=== PATIENT | female | born 1995 | race Caucasian/White ===

== ENCOUNTER → 2016-10-22 09:57 | Outpatient (CLI) | payer MEDICAID ==
[~2016-10-22 09:57] MED LIST: IBUPROFEN600 MG PO; PERCOCET 5-3251 TAB PO; PRENATAL COMPLE1 TAB PO; ZOLOFT50 MG PO
[2016-10-22 15:13] LABS: T4 THYROXIN - FREE 0.94 ng/dL (0.76-1.46); THYROID STIMULATING HORMONE 1.23 uIU/mL (0.36-3.74)
--- NOTE | 2016-10-24 11:11 | CN ---
PATIENT NAME:ELIF BELLO MEDICAL RECORD: [id number] : 93 LOCATION:[facility] ADMIT DATE: ACCOUNT: [id number] CONSULTING PHYSICIAN: MORE SHIPMAN MD REFERRING PHYSICIAN: NAM PALACIOS MD DATE OF CONSULTATION: 10/22/2016 Cardiology Consultation DIAGNOSES: 1. Recurrent syncope. 2. Tachycardia. 3. , week 30. HISTORY OF PRESENT ILLNESS: Mrs. Bello presents with episodes of syncope. This is not new however. She is 30 weeks . She had syncope prior to the . Workup for syncope has been negative in the past. She has a tachycardia, but it is resting tachycardia, approximately 110 beats per minute. No dysrhythmias. She does not feel any palpitations or worsening palpitations with the episodes of syncope. PHYSICAL EXAMINATION: GENERAL APPEARANCE: Well-nourished, well-developed, appears stated age. Level of distress, comfortable. PSYCHIATRIC: Mental status, alert, normal affect. Orientation, oriented to time, place and person. EYES: Lids and conjunctiva, noninjected. No discharge, no pallor. ENT: Lips, teeth, gums, normal dentition. Oropharynx, no cyanosis, no pallor. NECK: Carotid arteries, bilateral normal upstroke, no bruits, no thrills. JUGULAR VEINS: No jugular venous pressure or distention. CERVICAL LYMPH NODES: Nontender, nonenlarged. THYROID: Not enlarged. Nontender. No nodules. LUNGS: Respiratory effort, unlabored. CHEST: Normal curvature. No thoracic deformity. No chest wall tenderness. Percussion, resonant. Auscultation, clear. No wheezes, no rales, no rhonchi. CARDIOVASCULAR: Precordial exam, nondisplaced. No heaves or pericardial thrills. Rate and rhythm, regular. Heart sounds, normal S1, normal S2. No S3, no gallop, no rub. Systolic murmur, not heard. Diastolic murmur, not heard. EXTREMITIES: No cyanosis, no edema. Peripheral pulses, full and equal in all extremities, except as noted. No bruits appreciated. ABDOMEN: Soft, nondistended. Normal aorta. No bruit. Nontender. No masses. Liver, nontender, no hepatomegaly. Spleen, nontender, no splenomegaly. MUSCULOSKELETAL: No joint tenderness. No joint swelling. No erythema. NEUROLOGICAL: Normal gait, normal strength, normal tone. SKIN: Warm and dry. REVIEW OF SYSTEMS: The patient reports easy bruising but reports no swollen glands. The patient reports no fever, no night sweats, no significant weight gain, no significant weight loss. No significant exercise tolerance. The patient reports no dry eyes, no irritation, no vision change. Patient reports no difficulty hearing and no ear pain. Patient reports no frequent nose bleeds or nose and sinus problems. Patient reports on arm pain on exertion. No shortness of breath while lying down. No history of heart murmur. Patient reports no cough, no wheezing or coughing up blood. Patient reports no abdominal pain, no vomiting. Normal appetite. No diarrhea and not vomiting CONSULT REPORT [id number] ELIF BELLO. No nausea and no constipation. Patient reports no incontinence. No difficulty urinating. No hematuria. No increased frequency. Patient reports no muscle aches. No weakness, no arthralgias, no back pain. No swelling of the extremities. Patient reports no abnormal mole, no jaundice, no rashes. Reports no loss of consciousness. No weakness and no numbness. No seizures, dizziness, or headaches. The patient reports no depression, no sleep disturbance, feeling safe in a relationship and no alcohol abuse. Patient reports on fatigue. Reports no runny nose or sinus pressure. No itching, no hives, and no frequent sneezing. OVERALL IMPRESSION: At this time, we will get an echocardiogram to rule out peripartum cardiomyopathy. Otherwise, no cardiac workup is necessary. TRANSINT:[id number] Voice Confirmation ID: [id number] DOCUMENT ID: [id number] MORE SHIPMAN MD at 1111 CC: [id number] DICTATION DATE: 10/23/16 1520 OBSTETRICS NURSE: 10/23/16 1546 [facility] CLI 10/22/16 [place] [id number]
--- NOTE | 2016-10-24 11:11 | EC ---
PATIENT:ELIF BELLO DATE OF SERVICE: 10/22/16 SEX: F MEDICAL RECORD: [id number] DATE OF : [birth year] LOCATION:[facility] AGE OF PATIENT: 21 ADMISSION DATE: 10/22/16 REFERRING PHYSICIAN: INTERPRETING PHYSICIAN: MORE MCGUIRE MD ECHOCARDIOGRAM REPORT ECHO CHARGES 4 ECHO COMPLETE CLINICAL DIAGNOSIS: CP ECHOCARDIOGRAPHIC MEASUREMENTS (adult normal given) AC root (d.<3.7cm) 2.9 LV Septum d (<1.2 cm> 1.1 Valve Excursion 2.2 LV Septum (systole) 1.7 Left Atria (s.<4.0cm> 2.9 LVPW d(<1.2cm) 1.0 RV (d.<2.3cm) 3.1 LVPW (sytole) 1.6 LV diastole(<5.6CM) 4.6 MV E-F(>70mm/sec) LV systole 2.4 LVOT Diameter 2.0 MV exc.(>10mm) Est.ejection fraction (50-75%) Pericardial Effusion N DOPPLER: LVIT A 51.0 E 65.0 LA RVSP 34.2 LVOT 94.0 AOP1/2T Asc. Ao 143 RVOT 71.0 RA PA 93.0 AV Gradient Peak 8.2 AV Mean 4.1 AV Area 1.9 MV Gradient Peak 2.5 MV Mean 1.0 MV Area COMMENTS: Grinder Machine Setter: Elva MARMOLEJO Commercial Food Instructor:1 Dr. Mcguire TAPE# PACS DATE OF SERVICE: 10/22/2016 Echocardiogram FINDINGS: 1. Left ventricle chamber size is within normal limits. Left ventricular systolic function is normal. Overall ejection fraction estimated at 55%. 2. Left atrium, right atrium, and right ventricular chamber sizes are within normal limits. 3. Valvular structures have normal structure and motion. ECHOCARDIOGRAM REPORT [id number] ELIF BELLO 4. Doppler interrogation reveals no significant valvular insufficiency or stenosis. 5. No evidence of pericardial effusion or left ventricular thrombus. TRANSINT:[id number] Voice Confirmation ID: [id number] DOCUMENT ID: [id number] MORE MCGUIRE MD at 1111 CC: [id number] DICTATION DATE: 10/23/16 1520 TYPE PROOF REPRODUCER: 10/23/16 1534 [facility] CLI 10/22/16 [place] [id number] [facility] [address]
[2016-11-14 11:09] VITALS: BMI 28.6
== END | disposition home or self-care (01) ==
LOC: D.LDO 09:57
PROVIDERS: Specialist
DX: O26.893 Other specified pregnancy related conditions, third trimester (principal); Z3A.35 35 weeks gestation of pregnancy; R06.02 Shortness of breath; R55 Syncope and collapse; R42 Dizziness and giddiness

== ENCOUNTER 2016-11-14 04:41 | Inpatient (IN) | payer MEDICAID ==
[2016-11-14] VITALS (9 sets, daily range): BP systolic 104–132; BP diastolic 53–76; Ht 162.6 cm; Wt 75.8 kg
[~2016-11-14] VITALS: Ht 162.6 cm; Wt 75.8 kg
[~2016-11-14 04:41] MED LIST changes: -IBUPROFEN600 MG PO; -PERCOCET 5-3251 TAB PO; -ZOLOFT50 MG PO
[2016-11-14] MEDS ORDERED: PRENATAL COMPLE1 TAB PO (05:28)
[2016-11-14 06:32] LABS: HEMATOCRIT 37.5 % (36.0-48.0); HEMOGLOBIN 12.9 g/dL (12-16); MCH 31.6 pg (26.0-34.0); MCHC 34.4 g/dL (31.0-37.0); MCV 91.9 fL (80.0-100.0); MEAN PLATELET VOLUME 10.4 fL (7.4-10.4); RBC 4.08 10x6/uL (4.00-5.40); RDW 13.6 % (11.5-14.5); WBC 8.4 10x3/uL (4.8-10.8)
[2016-11-14 09:38] LABS: APPEARANCE CLEAR (CLEAR); BILIRUBIN NEGATIVE (NEGATIVE); COLOR YELLOW (YELLOW); GLUCOSE NEGATIVE (NEGATIVE); KETONE NEGATIVE (NEGATIVE); LEUKOCYTE ESTERASE NEGATIVE (NEGATIVE); NITRITE NEGATIVE (NEGATIVE); PROTEIN NEGATIVE (NEGATIVE); UROBILINOGEN NORMAL (NORMAL)
--- NOTE | 2016-11-14 19:19 | NUR ---
1909 VIABLE BABY BOY DELIVERED, CORD BLOOD AND GASES DONE AND SENT OUT, LEE.
--- NOTE | 2016-11-14 20:15 | NUR ---
RECEIVED TO 1273 VIA CART FROM RECOVERY. AWAKE AND ORIENTED. ABD. DRESSING DRY AND INTACT. ICE CAP APPLIED TO DRESSING AREA. IV OF LR WITH 20U PITOCIN ADDED TO PUMP AT 125CC/HR. SCDS ON AND PUMP FUNCTIONAL. LIMITED MOVEMENT OF LOWER EXTREMITIES. DENIES ANY PAIN AT THIS TIME. LOCHIA RUBRA MOD. LENNON PATENT AND DRAINING. EPIDURAL CONTINUES TO INFUSE WITH 67.5CC REMAINING.
--- NOTE | 2016-11-14 20:30 | NUR ---
AWAKE AT INTERVALS. BREATH SOUNDS CLEAR. BOWEL SOUNDS HYPOACTIVE. DENIES PAIN. FAMILY AT BEDSIDE. 60CC IN URINE METER.
--- NOTE | 2016-11-14 20:36 | NUR ---
IV OF LR WITH PITOCIN DOWN AND IV OF 1000CC NS WITH 20U PITOCIN ADDED HUNG AT PRESENT RATE OF 125CC/HR TO EXISTING TUBING.
--- NOTE | 2016-11-14 20:41 | NUR ---
BABY TO ROOM. PT. ASKING ABOUT HER OPTIONS TO EAT. INFORMED OF ITEMS AVAILABLE FOR HER TO EAT. SELECTION MADE.
--- NOTE | 2016-11-14 20:46 | NUR ---
[place] DRINK AND JELLO PROVIDED TO PT. CONTINUES AWAKE AND ORIENTED.
--- NOTE | 2016-11-14 21:12 | NUR ---
EPIDURAL INFUSING WITH 65.4CC REMAINING. ABD. DRESSING DRY AND INTACT. LOCHIA RUBRA SCANT. PT. AWAKENED WITH ASSESSMENT. DENIES ANY PAIN. FAMILY REMAIN AT BEDSIDE. APPROX. 100CC IN URINE METER WHICH IS CLEAR.
--- NOTE | 2016-11-14 21:31 | NUR ---
PT. REPORTS THAT SHE BOLUSED EPIDURAL DUE TO LOWER ABD. DISCOMFORT. INFORMED COULD ADMININISTER TORADOL. PT. AND PT'S MOTHER BOTH AGREE TO MED.
--- NOTE | 2016-11-14 21:37 | NUR ---
PT. AWAKE AND ORIENTED. WHEN ASKED ABOUT HER PAIN SCORE, PT. REPORTS THAT SHE DOES NOT HAVE ANY PAIN AND THE PAIN IS ONLY WHEN SHE COUGHS. INFORMED PT. THAT DISCOMFORT WITH COUGHING WOULD OCCUR. PT. STATES UNDERSTANDING. INQUIRED ABOUT OTHER NOURISHMENT THAT SHE WOULD LIKE. POPSICLE SERVED PER PT. REQUEST. VISITORS IN ROOM.
--- NOTE | 2016-11-14 22:05 | NUR ---
POSITION CHANGE FROM BACK TO RT SIDE WITH ASSISTANCE. POSITIONED WITH PILLOWS. EXPLAINED TO PT. HOW TO USE INCENTIVE SPIROMETER AND PT. STATES SHE HAS SEEN IT USED BEFORE. PT. STATES UNDERSTANDING TO INSTRUCTIONS AND GIVEN RETURN DEMONSTRATION X 2 ACHIEVING 2000 ON METER. INSTRUCTED PT. ON HOW TO SPLINT ABD. WHEN MAKING POSITION CHANGES AND COUGHING. PT. STATES VERBAL UNDERSTANDING. 500CC EMPTIED FROM LENNON METER AND DRAINAGE BAG. SCDS ON AND FUNCTIONAL. ABD. DRESSING DRY AND INTACT. LOCHIA RUBRA SCANT TO MOD. AFTER POSITION CHANGE PT. REPORTS THAT SHE IS COMFORTABLE AGAIN. EPIDURAL PUMP WITH 60.4 REMAINING.
--- NOTE | 2016-11-14 22:12 | NUR ---
CRANBERRY JUICE GIVEN TO PT. PT'S DAD TALKING TO PT. ABOUT STARTING ANTIBIOTICS ON . EXPLAINING REASONS. FAMILY AT BEDSIDE.
--- NOTE | 2016-11-14 23:00 | NUR ---
EPIDURAL PUMP READING 58.7CC REMAINING. PT. C/O BEING HOT. BLANKETS REMOVED FROM PT. , SOCKS REMOVED AND FEET UNCOVERED AND COOL CLOTH TO HEAD. TEMP. 98.4 AX. ICE CAP REFILLED AND PLACED ON ABD. DRESSING WHICH IS DRY AND INTACT. LOCHIA RUBRA SCANT TO MOD. SCDS ON AND FUNCTIONAL. LENNON PATENT AND DRAINING.
[2016-11-15] VITALS (7 sets, daily range): BP systolic 97–124; BP diastolic 54–68
--- NOTE | 2016-11-15 00:01 | NUR ---
PT. AWAKE AND ORIENTED. SKIN WARM AND DRY. PT. REPORTS THAT SHE HAS COOLED. LENNON EMPTIED OF 500 CC.ABD. DRESSING DRY AND INTACT. ICE CAP TO DRESSING AREA. JANETTE PADS CHANGED. LOCHIA RUBRA MOD ON PADS. PT. COUGHING DRY NONPRODUCTIVELY INTERMITTENTLY. REPORTS THAT IS ONLY TIME SHE HAS DISCOMFORT AND PT. BOLUSES EPIDURAL PUMP. 54CC REMAINING IN EPIDURAL PUMP. POSITIONED FROM RT TO LT. SIDE . PT. ABLE TO BEND LEGS AT KNEES AND PUSH AND LIFT BUTTOCKS SLIGHTLY. LESS ASSISTANCE NEEDED WITH THIS POSITION CHANGE WITH PT. ABLE TO ASSIST MORE. INCENTIVE SPIROMETER USED PER PT. ICE CHIPS PROVIDED. PT'S MOTHER LYING ON SOFA.
--- NOTE | 2016-11-15 01:25 | NUR ---
PT. AROUSES WHEN IN PT. ROOM BRIEFLY AND GOES IMMEDIATELY BACK TO SLEEP. PT'S MOTHER SLEEPING ON SOFA. LENNON PATENT AND DRAINING. CLINDAMYCIN 900MG HUNG TO INFUSE IN 30 MINUTES DIRECTED PER INFUSION PUMP PROGRAM AND VERIFIED BY DESKTOP SUPPORT MANAGER, SANTY. SCDS ON AND FUNCTIONAL.
--- NOTE | 2016-11-15 02:00 | NUR ---
PT. AWAKE WHEN DOOR OPENED. POSITIONED FROM LT SIDE TO BACK. JANETTE PADS CHANGED AND UNDER PAD CHANGED. PT. OF MINIMAL ASSISTANCE WITH LIFTING BUTTOCKS. EATING ON ICE BUT DENIES ANY NEEDS. LENNON PATENT AND DRAINING. SCDS ON AND FUNCTIONAL. EPIDURAL PUMP CONTINUES TO INFUSE WITH 47.4CC REMAINING. STATES SHE HAS GOTTEN COOL AND REQUESTED BLANKET AGAIN. SAME GIVEN.
--- NOTE | 2016-11-15 04:05 | NUR ---
LENNON EMPTIED OF 400CC. PT. AWAKENS BRIEFLY TO MOVEMENT IN ROOM AND THEN GOES BACK TO SLEEP. VITAL SIGNS OBTAINED. POSITION CHANGED FROM BACK TO RT SIDE. PT. ABLE TO PROVIDE MORE ASSISTANCE WITH TURNING SELF. JANETTE PADS CHANGED WITH SCANT TO MOD. LOCHIA RUBRA. ABD. DRESSING DRY AND INTACT. ICE CAP REFILLED AND PLACED OVER ABD. BANDAGE. SCDS ON AND FUNCTIONAL. EPIDURAL PUMP CONTINUES TO INFUSE WITH 40CC REMAINING. PT'S MOTHER SLEEPING ON SOFA.
--- NOTE | 2016-11-15 05:05 | NUR ---
LAB HERE FOR BLOOD DRAW.
[2016-11-15 05:15] LABS: RAPID PLASMA REAGIN Non Reactive (Non Reactive)
--- NOTE | 2016-11-15 05:15 | NUR ---
ROOM TEMP. WARMER. PT. C/O FEELING HOT. ALSO C/O ITCHING. INFORMED THAT EPIDURAL WOULD BE TURNED OFF AROUND 7AM SO COULD TURN OFF NOW IF SHE DESIRES. PT. DECLINED STATING THAT SHE WOULD CONTINUE WITH EPIDURAL. LENNON PATENT AND DRAINING. MOTHER AT BEDSIDE WIPING PT'S FACE WITH COOL WASH CLOTH. [employer] DRINK PROVIDED. PT. WITH BLANKET COVERING HER AND OFFERED TO REMOVE BLANKET AND PT. DECLINED.
[2016-11-15 05:22] LABS: BASOPHILS 0.1 % (0.0-2.0); EOSINOPHILS 0.1 % (0-7); HEMATOCRIT 32.6 % (36.0-48.0); HEMOGLOBIN 11.2 g/dL (12-16); IMMATURE GRANULOCYTES 0.2 % (0-5); LYMPHOCYTES 5.5 % (15-50); MCH 31.5 pg (26.0-34.0); MCHC 34.4 g/dL (31.0-37.0); MCV 91.6 fL (80.0-100.0); MEAN PLATELET VOLUME 9.4 fL (7.4-10.4); MONOCYTES 8.8 % (2-11); NEUTROPHILS 85.3 % (40-80); PLATELET COUNT 164 10x3/uL (130-400); RBC 3.56 10x6/uL (4.00-5.40); RDW 13.6 % (11.5-14.5)
[2016-11-15 05:23] LABS: WBC 12.4 10x3/uL (4.8-10.8)
--- NOTE | 2016-11-15 06:15 | NUR ---
LYING ON RT SIDE WITH EYES CLOSED AND RESPIRATIONS REGULAR. PT. DOES NOT AROUSE TO THIS NURSE IN ROOM. EPIDURAL CONTINUES TO INFUSE. SCDS ON AND FUNCTIONAL. LENNON PATENT AND DRAINING WITH 350CC IN DRAINAGE METER. WILL NOT AWAKE PT. DURING THIS ROUND DUE TO LIMITED SLEEP THAT PT. HAS HAD TONIGHT. PT'S MOTHER SLEEPING ON SOFA.
--- NOTE | 2016-11-15 07:15 | NUR ---
THIS RN TO ROOM WITH PAULA CHAIREZ FOR BEDSIDE REPORT. PT DENIES PAIN OR ANY NEEDS AT THIS TIME. WILL RETURN FOR FULL ASSESSMENT.
--- NOTE | 2016-11-15 07:37 | NUR ---
THIS RN TO ROOM FOR SHIFT ASSESSMENT. VS TAKEN, SEE FLOWSHEET FOR DOC. IV INFUSING PITOCIN TO RIGHT WRIST, EPIDURAL LINE IN PLACE AND INFUSING AT 2.5ML/H WITH 19.8VTBI. FUNDUS FIRM, ML, U/2. OCCLUSIVE ABD DSG C/D/I OVER LT INCISION. SMALL LOCHIA WITHOUT CLOTS NOTED TO PERIPAD, PERINEUM CLEANED AND PERIPAD CHANGED. LENNON CATH REMOVED AND IV SALINE LOCKED PER ORDERS. EPIDURAL PUMP TURNED OFF, LINE LEFT IN PLACE AT THIS TIME UNTIL PT HAS BETTER MOBILITY TO SIT UP FOR REMOVAL. SCD'S ON BILAT TO LE. PT DENIES PAIN BUT STATES SHE "DOESN'T FEEL GOOD." POC DISCUSSED WITH PT, WILL ADMIN IV TORADOL ORDERED FOR BREAKTHROUGH PAIN ANTICIPATION EPIDURAL WEARS OFF. PT REPORTS SOME NAUSEA AND VOMITING SMALL AMT CLEAR LIQUIS WITH CL BREAKFAST. PT DENIES NEED FOR NAUSEA MEDICATION. COOL CLOTH GIVEN FOR FACE. NEW ICE PACK APPLIED TO INCISION. PT DENIES FURTHER NEEDS. PT INSTRUCTED TO CALL WHEN SHE FEELS THE URGE TO VOID. SRUx2, CL IN REACH. PT'S MOTHER AT BEDSIDE. MIC RN TO ROOM WITH INFANT.
--- NOTE | 2016-11-15 09:08 | NUR ---
PT C/O SWEATING. PT'S VITALS RETAKEN, TEMP NOTED TO BE DECREASED TO 99.0 ORALLY. GOWN AND PARTIAL LINEN CHANGE DONE. FUNDUS FIRM, ML, U/2. SMALL RUBRA LOCHIA WITHOUT CLOTS TO PERIPAD. COOL CLOTH GIVEN. PT DENIES FURTHER NEEDS.
--- NOTE | 2016-11-15 09:20 | NUR ---
DR PALACIOS PHONED AND NOTIFIED OF PT'S VITALS, AM LABS, C/O, AND REVIEWED THAT ABX NEED TO BE CONTINUED PREVIOUSLY ORDERED. ORDER RECEIVED FOR RAPID FLU AND STREP SWABS. WILL PROCEED ORDERED.
--- NOTE | 2016-11-15 09:40 | NUR ---
DR PALACIOS PHONED AND NOTIFIED OF HOSPITALS POLICIES REGARDING FLU SWABS AND ISOLATION POTENTIALLY CAUSING ISSUES WITH AND . ORDER RECEIVED TO CANCEL FLU SWAB AT THIS TIME AND WILL RE-EVALUATE NEEDED, BUT PROCEED WITH ABX AND RAPID STREP SWAB. WILL UPDATE PT ON POC.
--- NOTE | 2016-11-15 09:58 | NUR ---
PT . FIRST IV ABX HUNG AND PERCOCET 10 ADMIN FOR PAIN 04/20, SEE EMAR FOR DOC.
--- NOTE | 2016-11-15 11:15 | NUR ---
PT C/O URGE TO VOID. PT SITS ON BEDSIDE, EPIDURAL CATH REMOVED WITHOUT INCIDENT, BLACK TIP INTACT. BANDAID APPLIED. PT AMBULATES TO BR WITH MINIMAL ASSIST, C/O FEELING "A LITTLE LIGHTHEADED" BUT STATES SHE FEELS STABLE AND CAN WALK. PT VOIDS APPROX 600ML CLEAR YELLOW URINE IN URINE HAT. PANTIES AND CLEAN PADS APPLIED. BED PADS CHANGED. PT AMBULATES BACK TO BED AND POSITIONS SELF UP IN BED. NEW ICE PACK APPLIE. PT DENIES NEEDS. WILL CONT TO MONITOR.
--- NOTE | 2016-11-15 12:16 | NUR ---
DR PALACIOS TO ROOM ASSESSING PT AND DISCUSSING POC. PT VERBALIZES UNDERSTANDING AND DENIES QUESTIONS. IV ABX HUNG PER ORDER WITH SALINE FLUSH BETWEEN ABX. DIET ADVANCED TO REGULAR DIET ORDERED BY DR PALACIOS. PT DENIES NEEDS. SRUx2, CL IN REACH.
[2016-11-15 12:40] LABS: BASOPHILS 0.1 % (0.0-2.0); EOSINOPHILS 0.1 % (0-7); HEMATOCRIT 31.6 % (36.0-48.0); HEMOGLOBIN 10.9 g/dL (12-16); IMMATURE GRANULOCYTES 0.3 % (0-5); LYMPHOCYTES 6.1 % (15-50); MCH 31.6 pg (26.0-34.0); MCHC 34.5 g/dL (31.0-37.0); MCV 91.6 fL (80.0-100.0); MEAN PLATELET VOLUME 9.1 fL (7.4-10.4); MONOCYTES 6.7 % (2-11); NEUTROPHILS 86.7 % (40-80); PLATELET COUNT 165 10x3/uL (130-400); RBC 3.45 10x6/uL (4.00-5.40); RDW 13.8 % (11.5-14.5); WBC 12.8 10x3/uL (4.8-10.8)
--- NOTE | 2016-11-15 13:12 | OP ---
PATIENT NAME: ELIF BELLO MEDICAL RECORD: [id number] :93 LOCATION:[id number] ADMISSION DATE:11/14/16 SURGEON: NAM GODINEZ MD DATE OF OPERATION: 11/14/2016 PREOPERATIVE DIAGNOSES: 1. Intrauterine at 39 weeks, 1 day. 2. Arrest of descent. 3. Chorioamnionitis. POSTOPERATIVE DIAGNOSES: 1. Intrauterine at 39 weeks, 1 day. 2. Arrest of descent. 3. Chorioamnionitis. 4. Delivered. SURGEON: Nam Godinez MD. ANESTHESIA: Epidural anesthesia with Brayden Teresa MD. PROCEDURE: Emergent primary low-transverse . FINDINGS: Delivery of viable male infant from vertex/OP presentation via emergent primary low-transverse under epidural anesthesia at 1910 p.m. with weight of 6 pounds 14 ounces and scores of 9 and 9 at 1 and 5 minutes respectively. No nuchal cord was noted. The cord was clamped and cut. The was bulb suctioned and handed to awaiting pediatric nursing personnel. The placenta was delivered manually intact with 3-vessel cord at 1911 p.m. Fundus was noted to be firm. Normal appearing uterus, ovaries and tubes bilaterally. The patient went to the recovery room in stable condition and the infant to the nursery. DESCRIPTION OF PROCEDURE: After informed consent was given, the patient was taken to the operating room where epidural anesthesia had been bolused and was found to be adequate. She was placed in a dorsal supine position with a leftward tilt. A Pizano catheter was already in place with clear urine return noted. She was prepped and draped sterilely. When adequate anesthesia was noted, a Pfannenstiel skin incision was made with scalpel and carried through to the underlying layer of fascia. The fascia was incised in the midline and the fascial incision extended bilaterally with the Frey scissors. The superior portion of the fascial incision was grasped with 2 Juve clamps and the rectus muscles dissected off bluntly. Attention was then turned to the inferior portion of the fascial incision, which was again grasped with 2 Juve clamps and the rectus muscles dissected off sharply and bluntly. The rectus muscles were in the midline, the peritoneum identified and entered bluntly with a finger. This incision was extended superiorly and inferiorly with good visualization of the bladder. The bladder blade was inserted and the vesicouterine peritoneum was grasped with smooth pickups and entered sharply with Metzenbaum scissors. This incision was extended bilaterally and a bladder flap created digitally. The bladder blade was reinserted. The hysterotomy was created with a knife. This was extended bilaterally bluntly and the infant's head delivered atraumatically. No nuchal cord was noted. The cord was clamped times 2 and cut. The infant was bulb suctioned and handed to awaiting pediatric nursing personnel. The placenta was delivered manually intact and passed off the field as specimen. Cord blood was obtained. The uterus was exteriorized, OPERATIVE REPORT [id number] ELIF BELLO cleared of all clots and debris. The interior of the uterus was wiped with a moist lap sponge. The hysterotomy was then closed in 2 layers with 0 chromic in a running locked fashion, the second layer imbricating the first. Excellent hemostasis was noted and the uterus was returned to the abdomen. The abdomen was irrigated profusely and noted to be hemostatic. Sunitha dust was placed over the hysterotomy to aid additionally in hemostasis. The rectus muscles were reapproximated in the midline with 3 interrupted chromic sutures. The fascia was closed with 1-0 Vicryl in a running fashion, locking the first suture. The subcutaneous tissue was irrigated, any bleeders cauterized with the Bovie and when noted to be sufficiently dry was closed with 3-0 Vicryl in a running fashion and the skin was closed with 3-0 Monocryl in a subcuticular fashion. Dermabond and pressure dressing were applied. Clear urine was noted at completion of the procedure. The patient tolerated procedure well. Sponge, lap, needle, and instrument counts were reported correct times 2 and the patient went to the recovery room in stable condition, the infant to the nursery. ESTIMATED BLOOD LOSS: 800 cc. URINE OUTPUT: 200 cc. SPECIMENS: Placenta and cord blood. COMPLICATIONS: None. TRANSINT:[id number] Voice Confirmation ID: [id number] DOCUMENT ID: [id number] NAM GODINEZ MD at 1312 CC: [id number] DICTATION DATE: 11/14/162041 INHALATION THERAPY TEACHER: 11/15/[address] [facility] [address] [facility]
--- NOTE | 2016-11-15 13:30 | NUR ---
PT CALLS OUT BARBER OR BEAUTY SHOP MANAGER LIGHT WITH C/O NEEDING TO VOID. PT AMBULATES TO BR WITH MINIMAL ASSIST AND VOIDS APPROX 700ML CLEAR YELLOW URINE. PT CHANGES PERIPADS AND AMBULATES BACK TO BED. PT DENIES NEEDS. SRUx2, CL IN REACH. FAMILY AT BEDSIDE.
--- NOTE | 2016-11-15 14:20 | NUR ---
PT C/O PAIN AND REQUESTING TORADOL, ADMIN ORDERED. DISCUSSED SHOWER AND AMBULATING WITH PT ONCE PAIN IS RELIEVED, PT AGREES. WILL RETURN FOR REASSESS AND AMBULATION.
--- NOTE | 2016-11-15 14:30 | NUR ---
PT CALLS OUT GLOVE BOARDER LIGHT FOR ASSISTANCE WITH . PT ASSISTED TO LATCHING TO BREAST. PT DENIES NEED FOR PAIN MEDICATION OR ANY OTHER ASSISTANCE. PT INSTRUCTED TO CALL FOR ANY NEEDS. SRUx2, CL IN REACH. PT'S MOTHER AT BEDSIDE.
--- NOTE | 2016-11-15 14:51 | NUR ---
PT AMBULATES TO ROOM 1257 WITHOUT ASSIST. PT ORIENTED TO NEW ROOM AND CALL LIGHT. PT TO BR AND VOIDS MOD AMT CLEAR YELLOW URINE. PT TO SHOWER WITH INSTRUCTIONS TO CALL IF DIZZY AND FOR ASSISTANCE REMOVING ABD DSG. UNDERSTANDING VERBALIZED.
--- NOTE | 2016-11-15 15:10 | NUR ---
PT SHOWERING, ASSSISTED TO REMOVED ABD DSG. INICISION IS C/D/I WITH NO BLEEDING, DRAINAGE, STREAKING, REDNESS OR EDEMA NOTED. PT INSTRUCTED TO WASH GENTLY WITH SOAP AND WATER, PAT DRY AND DEMONSTRATED ON PERIPAD PLACEMENT OVER INCISION. UNDERSTANDING VERBALIZED. PT DENIES NEEDS. PT'S MOTHER IN BR WITH HER. WILL RETURN FOR VS POST SHOWER.
--- NOTE | 2016-11-15 15:25 | NUR ---
VSS, PT REMAINS AFEBRILE AND NORMAL HR SINCE 1130. PT STATES SHE FEELS MUCH BETTER AFTER SHOWER AND RATES PAIN 3-4/10 AT THIS TIME. NEW ICE PACK PROVIDED WITH INSTRUCTIONS TO STOP ICE PACK AT 24 HOURS AFTER DELIVERY, PT VERBALIZES UNDERSTANDING. SPRITE GIVEN. PT DENIES FURTHER NEEDS. SRUx2, CL IN REACH.
--- NOTE | 2016-11-15 16:30 | NUR ---
PT CALLS OUT LACROSSE PLAYER LIGHT FOR ASSISTANCE WITH . PT ASSISTED TO LATCHING TO BREAST. PT DENIES NEED FOR PAIN MEDICATION OR ANY OTHER ASSISTANCE. PT INSTRUCTED TO CALL FOR ANY NEEDS. SRUx2, CL IN REACH. PT'S MOTHER AT BEDSIDE. Note Type Description
--- NOTE | 2016-11-15 17:17 | NUR ---
ABX INFUSING PER ORDERS TO RIGHT WRIST IV. PT HOLDING , DENIES ANY NEEDS AT THIS TIME. SRUx2, CL IN REACH.FAMILY AT BEDSIDE.
--- NOTE | 2016-11-15 19:29 | NUR ---
BEDSIDE REPORT GIVEN TO PAULA BROWN.
--- NOTE | 2016-11-15 19:30 | NUR ---
RN TO PT BS WITH Deysi WEBSTER RN FOR SHIFT REPORT AND KATIUSKA. PT RESTING IN BED IN SEMI-FOWLERS POSITION VISITING WITH MULTIPLE FAMILY MEMBERS AT BS. PT IS A 21YO G1 NOW P1 WITH PRIMARY C/S YESTERDAY @ 191 OF VIABLE MALE INFANT @ 39.1 WKS GESTATION. PT WITH PRIMARY C/S FOR MATERNAL FEVER AND TACHYCARDIA. AAOX3. HR REGULAR. LUNGS CTAB. ABDOMEN SOFT AND NON TENDER. BS ACTIVE TIMES 4. PT STATES SHE HAS PASSED GAS BUT HAS NOT HAD A BM SINCE C/S. FUNDUS NOT PALPATED. LOCHIA RUBRA SCANT. LOWER ABDOMINAL INCISION NOTED, GLUE TO SITE. INCISION WELL PROXIMATED WITH NO REDNESS, EDEMA, OR DRAINAGE NOTED. JANETTE PAD AND PANTIES IN PLACE. PT DENIES DIFFICULTY VOIDING. NO EDEMA NOTED TO UPPER OR LOWER EXTREMITIES BILATERALLY. [address] TO RIGHT WRIST, FLUSHED WITH 5 CC NS WITHOUT DIFFICULTY. NO REDNESS, EDEMA, OR DRAINAGE NOTED TO SITE. PT RECEIVING IV ANTIBIOTICS UNTIL AFEBRILE FOR 24 HOURS. PT RATES PAIN AT 2/10 AT THIS TIME. PT DENIES ANY NEEDS. VS WNL. BED IN LOW POSITION, SIDE RAILS UP TIMES 2, CALL LIGHT AND PHONE IN REACH. MULTIPLE FAMILY MEMBERS AT PT BS FOR SUPPORT AND ASSISTANCE. INFANT REMAINS AT PT BS FOR COUPLET CARE. WILL CONT TO MONITOR PT STATUS.
--- NOTE | 2016-11-15 20:45 | NUR ---
RN TO PT BS. PT RESTING IN BED IN SEMI-FOWLERS POSITION ATTEMPTING TO BREASTFEED INFANT. GENTAMYCIN 80MG HUNG TO INFUSE VIA PUMP AT 100ML/HR. PT DENIES ANY NEEDS AT THIS TIME. BED IN LOW POSITION, SIDE RAILS UP TIMES 2, CALL LIGHT AND PHONE IN REACH. PT MOTHER AT BS FOR SUPPORT AND ASSISTANCE. WILL CONT TO MONITOR PT STATUS.
--- NOTE | 2016-11-15 21:34 | NUR ---
RN TO PT BS. PT RESTING IN BED IN SEMI-FOWLERS POSITION, HOLDING IN NO ACUTE DISTRESS. GENTAMYCIN 80MG IVPB INFUSION COMPLETE. SALINE LOCK FLUSHED WITH 5CC NS WITHOUT DIFFICULTY AND LOCKED. PT DENIES ANY NEEDS AT THIS TIME. BED IN LOW POSITION, SIDE RAILS UP TIMES 2, CALL LIGHT AND PHONE IN REACH. FAMILY TIMES 1 AT PT BS FOR SUPPORT AND ASSISTANCE. INFANT REMAINS AT PT BS FOR COUPLET CARE. WILL CONT TO MONITOR PT STATUS.
--- NOTE | 2016-11-15 21:52 | NUR ---
RN CALLED TO PT BS. PT C/O PAIN, RATES 04/20. REQUESTS MEDICATION. 1 TAB IBUPROFEN AND 1 TAB PERCOCET 10 PROVIDED AT THIS TIME. PT DENIES ANY FURTHER NEEDS. FAMILY TIMES 2 AT BS FOR SUPPORT AND ASSISTANCE. BED IN LOW POSITION, SIDE RAILS UP TIMES 2, CALL LIGHT AND PHONE IN REACH. REMAINS AT PT BS FOR COUPLET CARE. WILL CONT TO MONITOR PT STATUS.
--- NOTE | 2016-11-15 22:58 | NUR ---
RN TO PT BS. PT RESTING IN BED IN SEMI-FOWLERS POSITION, HOLDING , IN NO ACUTE DISTRESS. 18G SL IN RIGHT WRIST FLUSHED WITH 5CC NS WITHOUT DIFFICULTY. CLINIMYACIN 900MG HUNG TO INFUSE VIA PUMP AT 100ML/HR. PT DENIES ANY NEEDS AT THIS TIME. BED IN LOW POSITION, SIDE RAILS UP TIMES 2, CALL LIGHT AND PHONE IN REACH. FAMILY TIMES 1 AT PT BS FOR SUPPORT AND ASSISTANCE. INFANT REMAINS AT PT BS FOR COUPLET CARE. WILL CONT TO MONITOR PT STATUS.
--- NOTE | 2016-11-15 23:30 | NUR ---
RN TO PT BS. PT RESTING IN BED IN SEMI-FOWLERS POSITION . CLINDAMYCIN INFUSION COMPLETE. 18G IV FLUSHED WITH 5CC NS WITHOUT DIFFICULTY, IV SALINE LOCKED. VS TAKEN, WNL. PT DENIES ANY FURTHER NEEDS AT THIS TIME. BED IN LOW POSITION, SIDE RAILS UP TIMES 2, CALL LIGHT AND PHONE IN REACH. FAMILY TIMES 1 REMAINS AT PT FOR SUPPORT AND ASSISTANCE. INFANT REMAINS AT PT BS FOR COUPLET CARE. WILL CONT TO MONITOR PT STATUS.
--- NOTE | 2016-11-16 01:52 | NUR ---
RN TO PT BS FOR ROUNDS. PT RESTING IN BED IN SEMI-FOWLERS POSITION, IN NO ACUTE DISTRESS. PT DENIES ANY NEEDS AT THIS TIME. BED IN LOW POSITION, SIDE RAILS UP TIMES 2, CALL LIGHT AND PHONE IN REACH. FAMILY TIMES 1 AT BS FOR SUPPORT AND ASSISTANCE. INFANT AT PT BS FOR COUPLET CARE. WILL CONT TO MONITOR PT STATUS.
--- NOTE | 2016-11-16 03:15 | NUR ---
RN TO PT BS. PT RESTING IN BED IN SEMI-FOWLERS POSITION IN NO ACUTE DISTRESS. TRANSPORTED TO NURSERY IN OPEN CRIB, WEIGHT AND VS TAKEN, INFANT SWADDLED AND RETURNED TO OPEN CRIB, TRANSPORTED TO PTS ROOM, ID BANDS VERIFIED TIMES 2. HANDED TO PT FOR EFFORT. PT DENIES ANY FURTHER NEEDS AT THIS TIME. BED IN LOW POSITION, SIDE RAILS UP TIMES 2, CALL LIGHT AND PHONE IN REACH. WILL CONT TO MONITOR PT STATUS.
[2016-11-16 04:09] VITALS: BP 115/63
--- NOTE | 2016-11-16 04:09 | NUR ---
RN TO PT BS. PT RESTING IN BED IN SEMI-FOWLERS POSITION, WITH EYES CLOSED, IN NO ACUTE DISTRESS. REPSIRATIONS EVEN AND UNLABORED. 18G IV FLUSHED WITH 5CC NS WITHOUT DIFFICULTY. GENTAMYCIN 80MG HUNG TO INFUSE VIA IVPB. PT RATES PAIN, 03/21, REQUESTS IBUPROFEN, 1 TAB PROVIDED TO PT AT THIS TIME WITH FRESH WATER MUG. VS TAKEN, WNL. PT DENIES ANY FURTHER NEEDS. BED IN LOW POSITION, SIDE RAILS UP TIMES 2, CALL LIGHT AND PHONE IN REACH. FAMILY TIMES 1 AT PT BS FOR SUPPORT AND ASSISTANCE. INFANT REMAINS AT PT BS FOR COUPLET CARE. WILL CONT TO MONITOR PT STATUS.
--- NOTE | 2016-11-16 05:12 | NUR ---
RN TO PT BS. PT RESTING IN BED IN SEMI-FOWLERS POSITION, WITH EYES CLOSED, IN NO ACUTE DISTRESS. REPIRATIONS EVEN AND UNLABORED. PT AWAKENS EASILY WHEN SPOKEN TO. GENTAMYCIN 80MG IVPB COMPLETE, 18G SL FLUSHED WITH 5 CC NS WITHOUT DIFFICULTY. CLINDAMYCIN 900MG HUNG TO INFUSE VIA GRAVITY. PT C/O PAIN, RATES 7/10, REQUESTS MEDICATION. 1 TAB PERCOCET 10 PROVIDED AT THIS TIME. PT DENIES ANY FURTHER NEEDS. BED IN LOW POSITION, SIDE RAILS UP TIMES 2, CALL LIGHT AND PHONE IN REACH. INFANT REMAINS AT PT BS FOR COUPLET CARE. WILL CONT TO MONITOR PT STATUS.
[2016-11-16 05:21] LABS: BASOPHILS 0 % (0.0-2.0); EOSINOPHILS 1.8 % (0-7); HEMATOCRIT 34.7 % (36.0-48.0); HEMOGLOBIN 11.6 g/dL (12-16); IMMATURE GRANULOCYTES 0.4 % (0-5); LYMPHOCYTES 12.2 % (15-50); MCH 31.1 pg (26.0-34.0); MCHC 33.4 g/dL (31.0-37.0); MEAN PLATELET VOLUME 9.3 fL (7.4-10.4); MONOCYTES 9.2 % (2-11); NEUTROPHILS 76.4 % (40-80); PLATELET COUNT 186 10x3/uL (130-400); RBC 3.73 10x6/uL (4.00-5.40); RDW 14.2 % (11.5-14.5); WBC 10.1 10x3/uL (4.8-10.8)
--- NOTE | 2016-11-16 05:41 | NUR ---
RN TO PT BS. CLINDAMYCIN 900MG IVPB INFUSION COMPLETE. 18G IV FLUSHED WITH 5 CC NS WITHOUT DIFFICULTY AND IV LOCKED. PT DENIES ANY FURTHER NEEDS AT THIS TIME. BED IN LOW POSITION, SIDE RAILS UP TIMES 2, CALL LIGHT AND PHONE IN REACH. FAMILY AT PT BS FOR SUPPORT AND ASSISTANCE. INFANT REMAINS AT PT BS FOR COUPLET CARE. WILL CONT TO MONITOR PT STATUS.
[2016-11-16 07:30] VITALS: BP 111/66
--- NOTE | 2016-11-16 07:30 | NUR ---
RECEIVED PT SITTING UP IN BED. EATING BREAKFAST. VSS. HRRR WITHOUT AUDIBLE MURMUR. BBS CLEAR. BS X 4. ABDOMEN SOFT. PPP. NO EDEMA NOTED TO BLE. PT STATES PAIN NOW "4" ON 0-10 PAIN SCALE. STATES VOIDING WITHOUT DIFFICULTY. STATES PASSING FEW SMALL CLOTS WITH VOIDING. DENIES NEEDS OR C/O. WILL ASSESS FUNDUS AND LOCHIA WHEN PT FINISHED WITH BREAKFAST. SR UP X 2. CALL LIGHT IN REACH.
--- NOTE | 2016-11-16 08:25 | NUR ---
PT SITTING UP IN BED. INFANT. FUNDUS FIRM AT U/1. RUBRA LOCHIA SCANT AMT. ABDOMINAL INCISION WITHOUT REDNESS, SWELLING OR DRAINAGE NOTED. PT VOICES NO NEEDS OR C/O.
--- NOTE | 2016-11-16 10:05 | NUR ---
PT UP TO SHOWER AT THIS TIME. LINENS PROVIDED.
--- NOTE | 2016-11-16 11:10 | NUR ---
ASSISTED PT WITH TECHNIQUE. PT DEMONSTRATES UNDERSTANDING OF AND TECHNIQUE. LATCHES WELL WITH GOOD SUCK REFLEX.
[2016-11-16] MEDS ORDERED: PERCOCET 5-3251 TAB PO (11:37)
[2016-11-16] MEDS ORDERED: IBUPROFEN600 MG PO (11:37)
[2016-11-16] MEDS ORDERED: ZOLOFT50 MG PO ×2 (11:43→11:46)
--- NOTE | 2016-11-16 12:20 | NUR ---
DR PALACIOS VISITS WITH PT.
--- NOTE | 2016-11-16 12:56 | NUR ---
PT AMBULATES BACK TO BED FROM BATHROOM. PT C/O BURNING AND CRAMPING TO INCISION OF "7" ON 0-10 PAIN SCALE. PT REQUESTS ONLY IBUPROFEN AT THIS TIME. IBUPROFEN 600 MG GIVEN PO ORDERED. PT INSTRUCTED ON MED. VERBALIZES UNDERSTANDING.
--- NOTE | 2016-11-16 14:25 | NUR ---
DISCHARGE INSTRUCTIONS GIVEN TO PT. PT VERBALIZES UNDERSTANDING OF ALL INSTRUCTIONS. COPIES GIVEN TO PT. PT GIVEN RHOGAM FULL DOSE IM TO RGM. BANDAID TO SITE. PT ALSO GIVEN RX FOR PERCOCET, ZOLOFT AND IBUPROFEN. PT DENIES NEEDS OR C/O. PREPARES FOR DISCHARGE.
--- NOTE | 2016-11-16 15:08 | NUR ---
PT READY FOR DISCHARGE. DISCHARGED WITH VIA WHEELCHAIR TO PRIVATE VEHICLE. PT KELSI WELL.
== END 2016-11-16 15:08 | disposition home or self-care (01) | DRG 765 ==
LOC: D.LD 04:41
PROVIDERS: ADMIT Specialist
PROC: 10D00Z1 Extraction of Products of Conception, Low, Open Approach (ICD-10-PCS; principal; 2016-11-14 18:45)
DX: O26.893 Other specified pregnancy related conditions, third trimester (principal); O41.1230 Chorioamnionitis, third trimester, not applicable or unspecified; Z67.91 Unspecified blood type, Rh negative; Z3A.39 39 weeks gestation of pregnancy; Z37.0 Single live birth; O62.1 Secondary uterine inertia; O86.4 Pyrexia of unknown origin following delivery

== ENCOUNTER → 2018-03-18 11:46 | Outpatient (CLI) | payer OTHER ==
[2016-11-14 11:09] VITALS: BMI 28.6
[~2018-03-18 11:46] MED LIST changes: +IBUPROFEN600 MG PO; +PERCOCET 5-3251 TAB PO; +ZOLOFT50 MG PO
== END | disposition home or self-care (01) ==
LOC: D.CT 11:46
DX: R19.00 Intra-abdominal and pelvic swelling, mass and lump, unspecified site (principal)